=== PATIENT | male | born 2000 | race Caucasian/White ===

== ENCOUNTER 2021-06-06 14:08 | Emergency (ER) | payer OTHER ==
[~2021-06-06] VITALS: Ht 172.7 cm; Wt 51.1 kg
[~2021-06-06 14:08] MED LIST: ACETAMINOPHEN; AMOX50SU PO; CODACEE120; CRUTCH4 USE; LORTAB 5-325 M1 EACH PO; ONDA4ODT MM; PENVK250SU PO; RXONDA4ODT MM; SULF10OPSA OU
== END 2021-06-06 15:50 | disposition home or self-care (01) ==
LOC: ER 14:08
DX: S06.0X0A Concussion without loss of consciousness, initial encounter (principal); W01.10XA Fall on same level from slipping, tripping and stumbling with subsequent striking against unspecified object, initial encounter
CPT/HCPCS: 70450; 99283-25

== ENCOUNTER 2022-07-12 17:10 | Emergency (ER) | payer OTHER ==
[~2022-07-12] VITALS: Ht 170.2 cm; Wt 52.2 kg
[~2022-07-12 17:10] MED LIST changes: +PRED20 PO
[2022-07-12] MEDS ORDERED: PERM5TC TOP (17:26)
== END 2022-07-12 17:20 | disposition home or self-care (01) ==
LOC: ER 17:10
DX: B86 Scabies (principal)
CPT/HCPCS: 99282

== ENCOUNTER 2023-03-16 13:32 | Emergency (ER) | payer OTHER ==
[~2023-03-16] VITALS: Ht 170.2 cm; Wt 52.2 kg
[~2023-03-16 13:32] MED LIST changes: +PERM5TC TOP
[2023-03-16 13:40] VITALS: BP 145/99
== END 2023-03-16 14:19 | disposition home or self-care (01) ==
LOC: ER 13:32
DX: U07.1 COVID-19 (principal)
CPT/HCPCS: 87430; 99282

== ENCOUNTER 2024-10-13 02:53 | Emergency (ER) | payer SELFPAY ==
[~2024-10-13] VITALS: Ht 170.2 cm; Wt 65.8 kg
[2024-10-13] MEDS ORDERED: DiphenhydrAMINE HCl 50 MG Cap PO ONE (03:35)
[2024-10-13 03:44] VITALS: BP 158/79
== END 2024-10-13 03:45 | disposition home or self-care (01) ==
LOC: ER 02:53
DX: T55.1X1A Toxic effect of detergents, accidental (unintentional), initial encounter (principal); L24.0 Irritant contact dermatitis due to detergents; Z88.8 Allergy status to other drugs, medicaments and biological substances
CPT/HCPCS: 99282; A9270

== ENCOUNTER 2024-12-27 12:05 | Emergency (ER) | payer SELFPAY ==
[~2024-12-27] VITALS: Ht 170.2 cm; Wt 56.7 kg
[2024-12-27 12:49] VITALS: BP 164/107
== END 2024-12-27 13:47 | disposition home or self-care (01) ==
LOC: ER 12:05
DX: S93.402A Sprain of unspecified ligament of left ankle, initial encounter (principal); X50.0XXA Overexertion from strenuous movement or load, initial encounter; Z88.8 Allergy status to other drugs, medicaments and biological substances
CPT/HCPCS: 73610; 99283-25